=== PATIENT | female | born 1940 | race Two or more races ===

== ENCOUNTER → 2020-05-29 | Outpatient (CLI) | payer MEDICARE, BC, OTHER ==
--- NOTE | 2020-05-29 15:36 | RADIOLOGY REPORT (SQ) ---
EXAM DESCRIPTION: CT LT LOWER EXTREMITY WITHOUT IMAGES COMPLETED DATE/TIME: 05/29/2020 3:08 pm REASON FOR STUDY: M97.02XA PERIPROSTH FRACTURE AROUND INTERNAL PROSTH L HIP JT, INIT COMPARISON: None. TECHNIQUE: Axial imaging performed through the Left femur with reformatted coronal and sagittal imaging windowed for bone and soft tissues. Images saved to PAC S. 3D IMAGING: Were 3D images as MIP, SSD, or volume rendering performed at the work station? Yes LIMITATIONS: Artifact from total hip arthroplasty. FINDINGS: SOFT TISSUES: No foreign body. BONY STRUCTURES: There is fracture through the femoral component extending from the tip to the osteot emmanuel position. MINERALIZATION: Normal. OTHER: No other significant finding. IMPRESSION: Fracture through the femoral component of the hip prosthesis. Reading location - IP/workstation name: [email or web address]
== END ==
LOC: RAD 14:46
PROVIDERS: ATTEND Orthopaedic Surgery
DX: M97.02XA Periprosthetic fracture around internal prosthetic left hip joint, initial encounter (principal); X58.XXXA Exposure to other specified factors, initial encounter

== ENCOUNTER 2020-05-30 05:19 | Inpatient (IN) | payer MEDICARE, BC, OTHER ==
[2020-05-30 06:50] LABS: HEMATOCRIT 26.1 % (36.0-47.0); MEAN CORPUSCULAR HEMOGLOBIN 28.6 pg (27.0-33.4); MEAN CORPUSCULAR HGB CONC 34.6 g/dL (32.0-36.0); MEAN CORPUSCULAR VOLUME 83 fl (80-97); PLATELET COUNT 337 10^3/uL (150-450); RED BLOOD COUNT 3.15 10^6/uL (3.72-5.28); RED CELL DISTRIBUTION WIDTH 13.2 % (11.5-14.0)
[2020-05-30] MEDS ORDERED: VANCOMYCIN HCL INJ 1000 MG VIAL ONE ×2 (07:02→07:19)
[2020-05-30] MEDS ORDERED: CEFAZOLIN 2 GM/D5W RTU 2 GM/50 ML RTUPB IV ONE (07:03)
[2020-05-30] MEDS ORDERED: TRAMADOL HCL 50 MG TABLET ONE (07:03)
[2020-05-30] MEDS ORDERED: OXYCODONE HCL SR 10 MG TABLET PO ONE (07:03)
[2020-05-30] MEDS ORDERED: ACETAMINOPHEN 325 MG TABLET ONE (07:03)
[2020-05-30] MEDS ORDERED: GABAPENTIN 100 MG CAPSULE ONE (07:04)
[2020-05-30] MEDS ORDERED: ONDANSETRON HCL INJ/PF 4 MG/2 ML SDV ONE ×2 (07:04→07:09)
[2020-05-30 07:05] LABS: ANION GAP 6 (5-19); BLOOD UREA NITROGEN 17 mg/dL (7-20); CALCIUM 9.7 mg/dL (8.4-10.2); CARBON DIOXIDE 27 mmol/L (22-30); CHLORIDE 104 mmol/L (98-107); GLUCOSE 91 mg/dL (75-110); POTASSIUM 3.9 mmol/L (3.6-5.0)
[2020-05-30] MEDS ORDERED: MIDAZOLAM 2 MG/2 ML INJ ONE (07:09)
[2020-05-30] MEDS ORDERED: FENTANYL CITRATE INJ/PF 100 MCG/2 ML AMPUL ONE (07:09)
[2020-05-30] MEDS ORDERED: PROPOFOL INJ 200 MG/20 ML VIAL IV ONE ×2 (07:09→10:52)
[2020-05-30] MEDS ORDERED: LIDOCAINE 2% INJ-PF (20 MG/ML) 10 ML AMPUL ONE (07:09)
[2020-05-30] MEDS ORDERED: BUPIVACAINE HCL 0.5 % INJ/PF 30 ML SDV ONE (07:10)
[2020-05-30] MEDS ORDERED: SCOPOLAMINE HYDROBROMIDE 1.5 MG PATCH.TD72 TD PRN (07:12)
[2020-05-30] MEDS ORDERED: TRANEXAMIC ACID INJ/PF 1,000 MG/10 ML SDV IV PRN (07:12)
[2020-05-30] MEDS ORDERED: GENTAMICIN SULFATE INJ 80 MG/2 ML VIAL ONE (07:19)
[2020-05-30] MEDS ORDERED: BUPIVACAINE HCL 0.25 % INJ/PF (2.5 MG/1 ML) 30 ML VIAL ONE (07:19)
[2020-05-30] MEDS ORDERED: BACITRACIN INJ 50,000 UNIT VIAL ONE (07:19)
[2020-05-30] MEDS ORDERED: KETOROLAC TROMETHAMINE INJ/PF 30 MG/1 ML SDV ONE (07:19)
[2020-05-30] MEDS ORDERED: TRANEXAMIC ACID INJ/PF 1,000 MG/10 ML SDV ONE (07:31)
[2020-05-30] MEDS ORDERED: FENTANYL/BUPIVACAINE/NS/PF 300 MCG/150 ML RTUINJ EPI ONE (07:35)
[2020-05-30] MEDS ORDERED: GLYCOPYRROLATE 1 MG/5 ML VIAL ONE (08:38)
[2020-05-30] MEDS ORDERED: PHENYLEPHRINE HCL INJ/PF 10 MG/1 ML SDV ONE (08:38)
[2020-05-30] MEDS ORDERED: DIPHENHYDRAMINE HCL 50 MG/ML VIAL IV PRN (08:42)
[2020-05-30] MEDS ORDERED: MORPHINE SULFATE 10 MG/ML INJ IV PRN ×2 (08:42→13:03)
[2020-05-30] MEDS ORDERED: FENTANYL CITRATE INJ/PF 100 MCG/2 ML AMPUL IV PRN ×3 (08:42)
[2020-05-30] MEDS ORDERED: OXYCODONE-ACETAMINOPHEN 5-325 MG TABLET PO PRN ×2 (08:42)
[2020-05-30] MEDS ORDERED: MEPERIDINE HCL/PF INJ 25 MG/1 ML DISP.SYRIN IV PRN (08:42)
[2020-05-30] MEDS ORDERED: PROMETHAZINE HCL INJ 25 MG/1 ML VIAL IV PRN ×2 (08:42)
[2020-05-30] MEDS ORDERED: VASOPRESSIN INJ 20 UNIT/1 ML VIAL ONE (11:56)
--- NOTE | 2020-05-30 12:41 | RADIOLOGY REPORT (SQ) ---
EXAM DESCRIPTION: HIP LEFT AP/LATERAL IMAGES COMPLETED DATE/TIME: 05/30/2020 12:29 pm REASON FOR STUDY: post op pacu M97.02XA PERIPROSTH FRACTURE AROUND INTERNAL PROSTH L HIP JT COMPARISON: 05/29/2020. NUMBER OF VIEWS: Two view(s). TECHNIQUE: Digital radiographic images of the left hip post-procedure. LIMITATIONS: None. FINDINGS: BONES: No worrisome or unexpected findings post-procedure. DEVICE: New left hip prosthesis with cerclage wires in the proximal femur. SOFT TISSUES: No worrisome findings. Expected postoperative soft tissue changes. IMPRESSION: SATISFACTORY POSTOPERATIVE LEFT HIP. TECHNICAL DOCUMENTATION: JOB ID: [id number] 2010 [employer]- All Rights Reserved Reading location - IP/workstation name: [email or web address]
--- NOTE | 2020-05-30 13:00 | Operative Report ---
Operative Report DATE OF SURGERY: 05/30/20 PREOPERATIVE DIAGNOSIS: Left periprosthetic femur fracture POSTOPERATIVE DIAGNOSIS: Left periprosthetic femur fracture OPERATION: Left total hip arthroplasty revision SURGEON: SHAYE HENDERSON JR ANESTHESIA: Epidural TISSUE REMOVED OR ALTERED: Cultures taken COMPLICATIONS: None ESTIMATED BLOOD LOSS: 550 cc PROCEDURE: The patient was brought into the operating suite after receiving epidural anesthesia, and placed in the lateral decubitus position on the operating table. The left lower extremity was then prepped and draped in sterile sterile fashion. We operatively the patient received 2 g Ancef and 1 g of vancomycin. A timeout was performed and the prior incision was marked. A posterior approach was performed through the recent surgical incision. Any recognized suture material was removed. The proximal aspect of the wound there was a cystic space with fluid. Superficial and deep cultures were taken. Continued down to posterior capsule which was found to be contracted and does not appear to have been sutured on the initial procedure. Additionally the piriformis that had been sutured was found to be avulsed off of the posterior greater trochanter. We dissected distally until we found the distal end of the fracture. At this point we placed a cerclage wire distal to the fracture and then another cerclage wire on the large lateral butterfly piece. This reduced anatomically and following this we then dislocated the hip and remove the stem. Antibiotic calcium phosphate beads were made on the back table. We thoroughly irrigated the femoral canal and then turned our attention to the acetabulum. The acetabular component was in a fair amount of vertical inclination and anteversion. I decided to reorient the cup. The liner was removed followed by removal of the acetabulum which came out relatively easily. We then reamed up to a 54 which achieved good peripheral fixation. The wound was again copiously irrigated with dilute Betadine solution, and a impacted a 54 multihole revision type cup. This had excellent seating and press-fit however we still chose to proceed with 2 screws in the superior acetabulum. A standard liner was then placed for 36 mm head. We then returned our attention to the femur and began reaming, we reamed up to a 18 size 195mm length stem. Thorough canal irrigation was performed followed by suction and application of antibiotic beads down the femoral canal. The real stem was then impacted in. A trial body was placed with appropriate anteversion and a -2.5 head was used to trial. Range of motion was found to have excellent stability throughout as well as near equal leg lengths. We then placed the final proximal body impacted into place, tightened with a torque wrench, and then shows a standard neck length head to ensure stability. This was then reduced and again taken through range of motion which was found to be excellent without impingement or any signs of subluxation. At this point we turned our attention to the greater trochanteric fracture. The greater trochanter piece and a smaller butterfly piece were reduced in place with a large pointed reduction forcep and a ball spike. Upon adequate reduction, cables were passed followed by application of the claw plate. I was pleased and felt we had near anatomic reduction. I proceeded to tighten the cables through the plate and cramped them. We had excellent tension on that time however there seems to have been some contracture over the interval of injury of internal rotation of the greater troches and upon returning the leg to neutral rotation the plate failed. The reduction was lost as well as the tension on the cables. At that point we made the decision not to proceed with greater trochanter reduction given that she had a substantial amount of assess lateralis attached to the proximal piece I am hopeful that this does not migrate proximally. The wound again was copiously irrigated followed by an Aricept soak that was allowed to sit for 2 minutes followed by repeat irrigation. I then placed the remainder of the antibiotic beads. The piriformis was then attempted to be reduced to the posterior trochanter however due to the increased tension we were unable to completely approximate this. #2 Vicryl to approximate some of the fascia to the posterior trochanter and an attempt reduce the likelihood that the trochanter would both migrate proximally and anteriorly. Following this #2 Quill was used to approximate the fascial layer. #2 Quill was used to approximate the deep layer as well. We then applied local anesthetic followed by a running 2-0 PDS barbed suture in the subdermal layer followed by a running barbed 3-0 Monocryl subcutaneously. The skin was closed with a running horizontal mattress 3-0 nylon and finally a negative pressure wound dressing was placed. The patient was then awakened from anesthesia and transferred the PACU in stable condition.
[2020-05-30] MEDS ORDERED: OXYCODONE HCL IR 5 MG TABLET PO PRN ×2 (13:02)
[2020-05-30] MEDS ORDERED: DIPHENHYDRAMINE HCL 25 MG CAPSULE PO PRN (13:06)
[2020-05-30] MEDS ORDERED: ZOLPIDEM TARTRATE 5 MG TABLET PO PRN (13:07)
[2020-05-30] MEDS ORDERED: NORMAL SALINE 1000 ML 1,000 ML IV PRN (13:08)
[2020-05-30] MEDS ORDERED: DOCUSATE SODIUM 100 MG CAPSULE PO PRN (13:08)
[2020-05-30] MEDS ORDERED: ONDANSETRON 4 MG TAB.RAPDIS PO PRN (13:09)
[2020-05-30] MEDS ORDERED: CEFAZOLIN 2 GM/D5W RTU 2 GM/50 ML RTUPB IV SCH (14:00)
[2020-05-30] MEDS ORDERED: PANTOPRAZOLE SODIUM 20 MG TABLET.DR PO ONE (15:00)
[2020-05-30] MEDS: ALBUMIN HUMAN 12.5 GM/50 ML RTUINJ IV SCH (16:00)
[2020-05-30] MEDS: ACETAMINOPHEN 325 MG TABLET PO SCH ×2 (16:33→22:03)
[2020-05-30] MEDS: KETOROLAC TROMETHAMINE INJ/PF 30 MG/1 ML SDV IV SCH ×2 (16:34→22:04)
[2020-05-30] MEDS: CEFAZOLIN SODIUM 2 GM in DEXTROSE 5%-WATER 100 ML IV SCH ×2 (16:35→22:05)
[2020-05-30] MEDS: GABAPENTIN 100 MG CAPSULE PO SCH (17:21)
[2020-05-31] MEDS: TRAMADOL HCL 50 MG TABLET PO PRN ×4 (02:49→22:55)
[2020-05-31] MEDS: KETOROLAC TROMETHAMINE INJ/PF 30 MG/1 ML SDV IV SCH ×2 (05:02→13:56)
[2020-05-31] MEDS: ACETAMINOPHEN 325 MG TABLET PO SCH ×3 (05:02→21:10)
[2020-05-31 06:20] LABS: ABSOLUTE EOSINOPHILS # (AUTO) 0.3 10^3/uL (0.0-0.6); ABSOLUTE LYMPHOCYTES (AUTO) 1.1 10^3/uL (0.5-4.7); ABSOLUTE MONOCYTES (AUTO) 0.9 10^3/uL (0.1-1.4); ABSOLUTE NEUT (AUTO) 9.2 10^3/uL (1.7-8.2); BASOPHILS % (AUTO) 0.2 % (0-2); EOSINOPHILS % (AUTO) 2.5 % (0-6); HEMATOCRIT 21.1 % (36.0-47.0); LYMPHOCYTES % (AUTO) 9.4 % (13-45); MEAN CORPUSCULAR HEMOGLOBIN 28.9 pg (27.0-33.4); MEAN CORPUSCULAR HGB CONC 34.2 g/dL (32.0-36.0); MEAN CORPUSCULAR VOLUME 85 fl (80-97); MONOCYTES % (AUTO) 8.1 % (3-13); PLATELET COUNT 227 10^3/uL (150-450); RED CELL DISTRIBUTION WIDTH 13.4 % (11.5-14.0); SEGMENTED NEUTROPHILS % (AUTO) 79.8 % (42-78); TOTAL CELLS COUNTED % (AUTO) 100 %; WHITE BLOOD COUNT 11.6 10^3/uL (4.0-10.5)
[2020-05-31 06:22] LABS: HEMOGLOBIN 7.2 g/dL (12.0-15.5)
--- NOTE | 2020-05-31 07:45 | PDOC PROGRESS REPORT ---
Subjective Progress Note for:: 05/31/20 Subjective:: Patient is doing well this morning. She reports adequate pain control. She had severe pain prior to surgery and feels that this is not worse but even potentially better. She has no acute events overnight. She does not feel lightheaded or overly lethargic this morning. She has not yet been out of bed with physical therapy. Reason For Visit: LEFT TOTAL HIP REVISION Physical Exam Vital Signs: Temp Pulse Resp BP Pulse Ox 98.4 F 65 18 116/47 L 97 05/30/20 23:57 05/30/20 23:57 05/30/20 23:57 05/30/20 23:57 05/30/20 23:57 Intake & Output 05/30/20 05/31/20 06/01/20 06:59 06:59 06:59 Intake Total 0 2960 Output Total 1150 Balance 0 1810 Weight 67.13 kg 74.8 kg Physical Exam: Alert and oriented x3, no acute distress left lower extremity -Pulses 2+ distally -Compartments soft -Sensation grossly intact to L3-4-5 S1 -Motor grossly intact to EHL TA gastroc and quad -Wound clean dry and intact, no drainage in the wound VAC. Results Laboratory Results: 05/31/20 05:57 05/30/20 06:31 05/30/20 05/31/20 06:31 05:57 WBC 11.6 H RBC 2.50 L Hgb 7.2 L Hct 21.1 L MCV 85 MCH 28.9 MCHC 34.2 RDW 13.4 Plt Count 227 Seg Neutrophils % 79.8 H Blood Type A NEGATIVE Antibody Screen NEGATIVE Impressions: Hip X-Ray 05/30/20 12:04 IMPRESSION: SATISFACTORY POSTOPERATIVE LEFT HIP. Assessment & Plan - Diagnosis (1) History of revision of total replacement of left hip joint Is this a current diagnosis for this admission?: Yes Plan: - 2 doses of Ancef postoperatively q 8 hours to complete 24 hours perioperatively -Weightbearing as tolerated, no precautions, encourage out of bed MARTHA for ADL training - PT/OT -aspirin 325 daily for DVT prophylaxis for 6 weeks -multimodal pain management to avoid excessive narcotics, including gabapentin, tramadol, Toradol, acetaminophen. -Dressing should not be removed for 7 to 10 days until seen in the office -May shower with the dressing intact, if it starts to come off she should not get the incision wet. -I would like to follow the patient my office within the next 7 to [address] [place] [address]. in [place] office #: [phone] (2) Postoperative anemia due to acute blood loss Is this a current diagnosis for this admission?: Yes Plan: The patient had a large revision surgery requiring increased time and greater than standard blood loss. She received 2 units of packed red blood cells in the operating room. She has postoperative anemia this morning. She does not have any current symptoms. My preference is to avoid transfusion in the last symptomatic or below 7.0. If the patient ambulates today and has difficulty with lightheadedness or lethargy or other symptoms or signs, will transfuse today. Otherwise we will recheck H&H in the morning. I have explained to the patient that the luz marina for postoperative hemoglobin is about postoperative day #3 and she will likely need another transfusion. She wants to wait if at all possible at this time. We will reevaluate throughout the day today and in the morning with labs. - Time Time Spent with patient: Less than 15 minutes
[2020-05-31] MEDS ORDERED: SIMETHICONE 80 MG TAB.CHEW PO PRN (09:21)
[2020-05-31] MEDS ORDERED: ASPIRIN 325 MG TABLET, ENT COATED PO SCH (10:00)
[2020-05-31] MEDS: GABAPENTIN 100 MG CAPSULE PO SCH ×2 (10:21→18:16)
[2020-05-31] MEDS: POLYETHYLENE GLYCOL 3350 POWDER 17 GM/1 PACKET PO SCH (10:21)
--- NOTE | 2020-05-31 10:23 | EKG REPORT ---
SEVERITY:- OTHERWISE NORMAL ECG - SINUS RHYTHM ATRIAL PREMATURE COMPLEX : Confirmed by: Bee Jimenez 31-May-2020 10:22:17
[2020-06-01] MEDS: ACETAMINOPHEN 325 MG TABLET PO SCH (05:07)
[2020-06-01] MEDS: TRAMADOL HCL 50 MG TABLET PO PRN ×2 (06:12→11:06)
--- NOTE | 2020-06-01 07:45 | PDOC PROGRESS REPORT ---
Subjective Progress Note for:: 06/01/20 Subjective:: Patient is doing well this morning. She reports pain, moderately controlled on current medication. She is comfortable in bed but reports considerable difficulty getting to the bathroom or otherwise. Nursing staff does report good function with physical therapy. She denies any lightheadedness when working with therapy, no acute symptoms overnight, no complaints of lethargy or symptomatic anemia. Reason For Visit: LEFT TOTAL HIP REVISION Physical Exam Vital Signs: Temp Pulse Resp BP Pulse Ox 98.3 F 69 17 132/46 H 96 06/01/20 04:22 06/01/20 04:22 06/01/20 04:22 06/01/20 04:22 06/01/20 04:22 Intake & Output 05/31/20 06/01/20 06/02/20 06:59 06:59 06:59 Intake Total 2960 978 Output Total 1150 2000 Balance 1810 -1022 Weight 74.8 kg Physical Exam: No acute distress alert oriented x3 Right lower extremity -Pulses 2+ distally -Compartments soft -Sensation grossly intact to L3-4-5 S1 -Motor grossly intact to EHL TA gastroc and quad -Wound clean dry and intact, minimal spotting, no output in wound VAC. Wound VAC now holding good seal, reinforced yesterday. Results Laboratory Results: 05/30/20 06:31 Impressions: Hip X-Ray 05/30/20 12:04 IMPRESSION: SATISFACTORY POSTOPERATIVE LEFT HIP. Assessment & Plan - Diagnosis (1) History of revision of total replacement of left hip joint Is this a current diagnosis for this admission?: Yes Plan: - 2 doses of Ancef postoperatively q 8 hours to complete 24 hours perioperatively -Weightbearing as tolerated, no precautions, encourage out of bed MARTHA for ADL training - PT/OT - Keep knee extended in bed, rolled towel under the ankle to obtain full extension -aspirin 81 BID for DVT prophylaxis for 6 weeks -multimodal pain management to avoid excessive narcotics, including gabapentin, tramadol, Toradol, acetaminophen. -Dressing should not be removed until seen in the office -May shower with the dressing intact, if it starts to come off she should not get the incision wet. -I would like to follow the patient my office within the next [address] [place] [address]. in [place] office #: [phone] - She has a history of Heterotopic ossification on the right, will start indomethacin - May be discharged home today pending blood work and appropriate PT clearance (2) Postoperative anemia due to acute blood loss Is this a current diagnosis for this admission?: Yes Plan: We will follow a.m. labs, pending hemoglobin may need transfusion prior to discharge. - Time Time Spent with patient: Less than 15 minutes
[2020-06-01 07:58] LABS: ABSOLUTE BASOPHILS # (AUTO) 0.1 10^3/uL (0.0-0.2); ABSOLUTE EOSINOPHILS # (AUTO) 0.3 10^3/uL (0.0-0.6); ABSOLUTE LYMPHOCYTES (AUTO) 1.4 10^3/uL (0.5-4.7); ABSOLUTE MONOCYTES (AUTO) 0.9 10^3/uL (0.1-1.4); BASOPHILS % (AUTO) 0.3 % (0-2); EOSINOPHILS % (AUTO) 1.8 % (0-6); HEMATOCRIT 20.8 % (36.0-47.0); LYMPHOCYTES % (AUTO) 8.7 % (13-45); MEAN CORPUSCULAR HEMOGLOBIN 28.7 pg (27.0-33.4); MEAN CORPUSCULAR HGB CONC 34.5 g/dL (32.0-36.0); MEAN CORPUSCULAR VOLUME 83 fl (80-97); MONOCYTES % (AUTO) 5.9 % (3-13); PLATELET COUNT 245 10^3/uL (150-450); RED CELL DISTRIBUTION WIDTH 13.5 % (11.5-14.0); SEGMENTED NEUTROPHILS % (AUTO) 83.3 % (42-78); TOTAL CELLS COUNTED % (AUTO) 100 %; WHITE BLOOD COUNT 15.6 10^3/uL (4.0-10.5)
[2020-06-01 07:59] LABS: HEMOGLOBIN 7.2 g/dL (12.0-15.5)
[2020-06-01] MEDS ORDERED: LEVOTHYROXINE SODIUM 0.112 MG TABLET PO SCH (08:00)
[2020-06-01] MEDS ORDERED: NISOLDIPINE 8.5 MG PO SCH (10:00)
[2020-06-01] MEDS ORDERED: (PENDING PHARMACY ID) (Telmisartan [Telmisartan] 80 MG) PO SCH (10:00)
[2020-06-01] MEDS ORDERED: TORSEMIDE 5 MG PO SCH (10:00)
[2020-06-01] MEDS ORDERED: POTASSIUM CHLORIDE 8 MEQ PO SCH (10:00)
[2020-06-01] MEDS: GABAPENTIN 100 MG CAPSULE PO SCH (11:55)
[2020-06-01] MEDS: POLYETHYLENE GLYCOL 3350 POWDER 17 GM/1 PACKET PO SCH (11:56)
[2020-06-01] MEDS ORDERED: ASPIRIN 81 MG TABLET, CHEWABLE PO SCH (12:00)
[2020-06-01] MEDS ORDERED: CYANOCOBALAMIN 5000 MCG PO SCH (12:00)
[2020-06-01] MEDS ORDERED: (PENDING PHARMACY ID) (Iron Ps Complex/B12/Folic Acid [Ferrex 150 Forte Capsule] 150 MG) PO SCH (12:00)
[2020-06-01] MEDS ORDERED: POTASSIUM CHLORIDE 10 MEQ TABLET.ER PO SCH (12:00)
[2020-06-01] MEDS ORDERED: CYANOCOBALAMIN (VITAMIN B-12) 1,000 MCG TABLET PO SCH (12:00)
[2020-06-01] MEDS ORDERED: FERROUS SULFATE 325 MG TABLET PO SCH (12:00)
[2020-06-01] MEDS ORDERED: LOSARTAN POTASSIUM 50 MG TABLET PO SCH (12:00)
[2020-06-01] MEDS ORDERED: INDOMETHACIN 25 MG CAPSULE PO SCH (12:00)
[2020-06-01 12:17] VITALS: BP 122/43
--- NOTE | 2020-06-01 14:08 | PDOC DISCHARGE SUMMARY ---
Impression - Admit/DC Date/PCP Admission Date/Primary Care Provider: 05/30/20 05:19 ADOLPH HICKMAN MD Discharge Date: 06/01/20 - Discharge Diagnosis (1) History of revision of total replacement of left hip joint Is this a current diagnosis for this admission?: Yes (2) Postoperative anemia due to acute blood loss Is this a current diagnosis for this admission?: Yes - Assessment Summary: Patient sustained a periprosthetic hip fracture on the left after receiving a left total hip arthroplasty approximately 2 weeks ago. The date of injury is unknown but it was progressively worse over time and she was seen in the office and found to have x-ray evidence of fracture about the femoral stem. He was admitted to the hospital on 05/29/2020 and underwent left total hip arthroplasty revision. During the procedure she received 2 units of packed red blood cells. Otherwise he tolerated procedure well and on postoperative day #1 was walking with physical therapy. An incisional wound VAC was placed it was monitored over the course of her stay and has not had any overt bleeding and remains intact. Her pain control improved over the course of the stay, we continue to monitor her vital signs and labs, and she continues to report improving symptoms and denied any symptoms of blood loss. She has been stable at hemoglobin of 7.2 over the last 2 days and has no symptoms today. She is wishing to return home. Today is postop day 3 and she has done well with physical therapy and is safe at this point to return home. There were no acute events or complications over the course of her stay - Additional Information Resuscitation Status: Full Code Discharge Diet: Regular Discharge Activity: Activity As Tolerated, No Driving, Keep Legs Elevated, No Lifting/Push/Pulling, Slowly Increase Activity, Supervised Activity, No tub bath, Walk Frequently Referrals: SHAYE HENDERSON JR, DO [ACTIVE PROVISIONAL STAFF] - (Follow up in office in 10 days) Prescriptions: Aspirin [Aspir-Low] 81 mg PO BID 42 Days Indomethacin [Indocin 25 mg Capsule] 75 mg PO DAILY 21 Days capsule Home Medications: Ascorbic Acid [Vitamin C 500 mg Tablet] 500 mg PO NOON 05/30/20 Cyanocobalamin (Vitamin B-12) [Vitamin B-12] 5,000 mcg PO NOON 05/30/20 Iron Ps Complex/B12/Folic Acid [Ferrex 150 Forte Capsule] 150 mg PO NOON 05/30/20 Levothyroxine Sodium [Synthroid 0.112 mg Tablet] 0.112 mg PO Q6AM 05/30/20 Metoprolol Succinate [Toprol Xl 25 mg Tab.sr] 25 mg PO QHS 05/30/20 Multivitamin 1 tab PO NOON 05/30/20 Nisoldipine [Sular] 8.5 mg PO BID 05/30/20 Oxycodone HCl [Oxy-Ir 5 mg Tablet] 5 mg PO Q6HP PRN 05/30/20 Potassium Chloride 8 meq PO DAILY 05/30/20 Rosuvastatin Calcium 20 mg PO QHS 05/30/20 Telmisartan 80 mg PO DAILY 05/30/20 Torsemide 5 mg PO DAILY 05/30/20 Ubidecarenone [Coq-10] 30 mg PO QHS 05/30/20 Aspirin [Aspir-Low] 81 mg PO BID 42 Days 06/01/20 Indomethacin [Indocin 25 mg Capsule] 75 mg PO DAILY 21 Days capsule 06/01/20 Levothyroxine Sodium [Synthroid 0.112 mg Tablet] 0.112 mg PO Q6AM tablet 06/01/20 Oxycodone HCl [Oxy-Ir 5 mg Tablet] 5 mg PO Q4HP PRN tablet 06/01/20 Oxycodone HCl [Oxy-Ir 5 mg Tablet] 10 mg PO Q4HP PRN tablet 06/01/20 Tramadol HCl [Ultram 50 mg Tablet] 50 mg PO Q4HP PRN #0 tablet 06/01/20 History of Present Illiness History of Present Illness: TIBURCIO ESTRADA is a 80 year old female Physical Exam Vital Signs: Temp Pulse Resp BP Pulse Ox 97.5 F 73 17 122/43 L 100 06/01/20 13:39 06/01/20 13:39 06/01/20 13:39 06/01/20 13:39 06/01/20 13:39 Intake & Output 05/31/20 06/01/20 06/02/20 06:59 06:59 06:59 Intake Total 2960 978 600 Output Total 1150 2000 Balance 1810 -1022 600 Weight 74.8 kg Results Laboratory Results: WBC 15.6 10^3/uL (4.0-10.5) H 06/01/20 07:30 RBC 2.50 10^6/uL (3.72-5.28) L 06/01/20 07:30 Hgb 7.2 g/dL (12.0-15.5) L 06/01/20 07:30 Hct 20.8 % (36.0-47.0) L 06/01/20 07:30 MCV 83 fl (80-97) 06/01/20 07:30 MCH 28.7 pg (27.0-33.4) 06/01/20 07:30 MCHC 34.5 g/dL (32.0-36.0) 06/01/20 07:30 RDW 13.5 % (11.5-14.0) 06/01/20 07:30 Plt Count 245 10^3/uL (150-450) 06/01/20 07:30 Lymph % (Auto) 8.7 % (13-45) L 06/01/20 07:30 [place] % (Auto) 5.9 % (3-13) 06/01/20 07:30 Eos % (Auto) 1.8 % (0-6) 06/01/20 07:30 Baso % (Auto) 0.3 % (0-2) 06/01/20 07:30 Absolute Neuts (auto) 13.0 10^3/uL (1.7-8.2) H 06/01/20 07:30 Absolute Lymphs (auto) 1.4 10^3/uL (0.5-4.7) 06/01/20 07:30 Absolute Monos (auto) 0.9 10^3/uL (0.1-1.4) 06/01/20 07:30 Absolute Eos (auto) 0.3 10^3/uL (0.0-0.6) 06/01/20 07:30 Absolute Basos (auto) 0.1 10^3/uL (0.0-0.2) 06/01/20 07:30 Seg Neutrophils % 83.3 % (42-78) H 06/01/20 07:30 Sodium 136.6 mmol/L (137-145) L 05/30/20 06:31 Potassium 3.9 mmol/L (3.6-5.0) 05/30/20 06:31 Chloride 104 mmol/L (98-107) 05/30/20 06:31 Carbon Dioxide 27 mmol/L (22-30) 05/30/20 06:31 Anion Gap 6 (5-19) 05/30/20 06:31 BUN 17 mg/dL (7-20) 05/30/20 06:31 Creatinine 0.74 mg/dL (0.52-1.25) 05/30/20 06:31 Est GFR ( Amer) > 60 (>60) 05/30/20 06:31 Est GFR (MDRD) Non-Af > 60 (>60) 05/30/20 06:31 Glucose 91 mg/dL (75-110) 05/30/20 06:31 Calcium 9.7 mg/dL (8.4-10.2) 05/30/20 06:31 SARS-CoV-2 (PCR) NEGATIVE (NEGATIVE) 05/30/20 05:30 Blood Type A NEGATIVE 05/30/20 06:31 Blood Type Confirm A NEGATIVE 05/30/20 06:31 Antibody Screen NEGATIVE 05/30/20 06:31 Crossmatch See Detail 05/30/20 06:31 Impressions: Hip X-Ray 05/30/20 12:04 IMPRESSION: SATISFACTORY POSTOPERATIVE LEFT HIP. Stroke Is this a Stroke Patient?: No Acute Heart Failure - Is this a Heart Failure Patient?: No
[2020-06-01] MEDS ORDERED: UBIDECARENONE 30 MG PO SCH (22:00)
[2020-06-01] MEDS ORDERED: (PENDING PHARMACY ID) (Rosuvastatin Calcium [Rosuvastatin Calcium] 20 MG) PO SCH (22:00)
[2020-06-01] MEDS ORDERED: ATORVASTATIN CALCIUM 40 MG TABLET PO SCH (22:00)
[2020-06-02] MEDS ORDERED: LEVOTHYROXINE SODIUM 0.112 MG TABLET PO SCH (06:00)
== END 2020-06-01 15:00 | disposition home health service (06) | DRG 467 ==
LOC: INOR 05:19 → 4N 15:57
PROVIDERS: ADMIT Orthopaedic Surgery; ATTEND Orthopaedic Surgery
PROC: 0SPB0JZ Removal of Synthetic Substitute from Left Hip Joint, Open Approach (ICD-10-PCS; 2020-05-30)
PROC: 30233N1 Transfusion of Nonautologous Red Blood Cells into Peripheral Vein, Percutaneous Approach (ICD-10-PCS; 2020-05-30)
PROC: 0SRB0JZ Replacement of Left Hip Joint with Synthetic Substitute, Open Approach (ICD-10-PCS; principal; 2020-05-30 07:30)
DX: M97.02XA Periprosthetic fracture around internal prosthetic left hip joint, initial encounter (principal); D62 Acute posthemorrhagic anemia; E03.9 Hypothyroidism, unspecified; B95.2 Enterococcus as the cause of diseases classified elsewhere; Z20.828 Contact with and (suspected) exposure to other viral communicable diseases; Z79.82 Long term (current) use of aspirin; Z79.899 Other long term (current) drug therapy
CPT/HCPCS: 01215; 36415; 36430; 80048; 85025; 85027; 86850; 86900; 86901; 86920; 87070; 87075; 87077; 87186; 87205; 87635; 93005; 93010; C1713; C1776; C9359; C9803; J0690; J1580; J1885; J2250; J2270; J2370; J2405; J2704; J3010; J3370; J3490; J7060; P9016; P9047

== ENCOUNTER → 2020-07-08 | Outpatient (CLI) | payer MEDICARE, BC, OTHER ==
[2020-07-08 11:18] LABS: ANION GAP 9 (5-19); BLOOD UREA NITROGEN 19 mg/dL (7-20); CALCIUM 9.6 mg/dL (8.4-10.2); CARBON DIOXIDE 28 mmol/L (22-30); CHLORIDE 107 mmol/L (98-107); GLUCOSE 133 mg/dL (75-110); POTASSIUM 5.5 mmol/L (3.6-5.0)
== END ==
LOC: OD 09:42
PROVIDERS: ATTEND Orthopaedic Surgery
DX: Z09 Encounter for follow-up examination after completed treatment for conditions other than malignant neoplasm (principal); Z96.641 Presence of right artificial hip joint
CPT/HCPCS: 36415; 80048; 86141